=== PATIENT | female | born 1965 | race Caucasian/White ===

== ENCOUNTER 2017-08-15 06:22 | Day surgery (SDC) | payer OTHER ==
[2017-08-10 16:13] VITALS: BMI 51.7
[2017-08-15] MEDS ORDERED: LIDOCAINE HCL 2% (20ML MULTI-DOSE VIAL) NR ONE (07:03)
[2017-08-15] MEDS ORDERED: PROPOFOL 20 ML ONE ×2 (07:27→07:52)
[2017-08-15] MEDS ORDERED: SUCCINYLCHOLINE CHLORIDE 200 MG/10 ML VIAL ONE (07:27)
[2017-08-15] MEDS ORDERED: MIDAZOLAM HCL 2 MG/2 ML SINGLE DOSE VIAL ONE ×2 (07:27→07:55)
[2017-08-15] MEDS ORDERED: LIDOCAINE HCL/PF 2% SDV 5ML VIAL ONE (07:28)
[2017-08-15] MEDS ORDERED: ceFAZolin SODIUM 1 GM VIAL ONE (07:46)
[2017-08-15 08:58] VITALS: BP 130/77; PULSE 79; TEMP 96
--- NOTE | 2017-08-16 16:15 | PATH ---
Surgical Pathology Report Patient Name: CALDERON PATEL [facility]. Rec. #: [id number] /Age/Gender: 1965 (Age: 52) / F Account: [id number] Location: [facility] Taken: 08/15/2017 Received: 08/15/2017 Reported: 08/16/2017 Physicians: Bridger Ponce M.D. 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 Left ring finger Final Diagnosis FINGER, LEFT, 4TH (RING), MARSUPIALIZATION: SKIN WITH HYPERKERATOSIS AND UNDERLYING SUBCUTANEOUS TISSUE. PAS STAIN FOR FUNGUS IS NEGATIVE. Electronically Signed Rhiannon Last M.D. Gross Description Received in formalin labeled "chronic fungal infection of eponychium left ring finger," is a 0.6 x 0.2 x 0.1 cm lovell, irregular, unoriented portion of possible skin. The specimen is submitted in toto in one cassette. /08/15/[address] [facility]08/15/2017
--- NOTE | 2017-08-17 16:53 | OP ---
DATE OF OPERATION: 08/15/2017 PREOPERATIVE DIAGNOSIS: Left ring finger chronic fungal paronychia. POSTOPERATIVE DIAGNOSIS: Left ring finger chronic fungal paronychia. OPERATIVE PROCEDURE: Left ring finger debridement and marsupialization of eponychium and paronychium. SURGEON: Bridger Prince MD ASSET PROTECTION ASSISTANT: UTE Chatman ANESTHESIA: Local and sedation. COMPLICATIONS: None. ESTIMATED BLOOD LOSS: Minimal. INDICATION FOR PROCEDURE: The patient is a 52-year-old female with the above findings, indicated for operative treatment. Risks, benefits, and alternatives were discussed with the patient at length. Proper informed consent was obtained. DESCRIPTION OF PROCEDURE: After proper identification of the patient and correct operative site, patient brought to the operating room and placed supine on the operating table. All prominences were well padded. Sedation was given by the anesthesiologist along with local anesthesia. The left ring finger was prepped and draped in usual sterile fashion. Esmarch bandage to exsanguinate the left upper extremity. Tourniquet was inflated to 250 mmHg. The eponychial and paronychial areas were identified and debrided, and a marsupialization procedure was performed, taking care to protect the germinal matrix of the nail. This was then sterilely dressed, and tissue was sent for pathology as well as fungal cultures. Patient was reversed from anesthesia and brought to recovery in stable condition. She tolerated the procedure well. BRIDGER PRINCE M.D. BRI/[id number]
== END 2017-08-15 09:00 | disposition home or self-care (01) ==
LOC: FASU 06:22
PROVIDERS: ATTEND Orthopaedic Surgery Hand Surgery
PROC: 0J9K0ZZ Drainage of Left Hand Subcutaneous Tissue and Fascia, Open Approach (ICD-10-PCS; principal; 2017-08-15 07:30)
DX: L03.012 Cellulitis of left finger (principal)
CPT/HCPCS: 87102; 87210; 88304-TC